=== PATIENT | male | born 1950 | race Caucasian/White ===

== ENCOUNTER → 2020-01-27 | Outpatient (CLI) | payer MEDICARE ==
--- NOTE | 2020-01-29 11:38 | ECHOF ---
Referral Reason:R01.1 heart murmur MEASUREMENTS -------- HEIGHT: 175.3 cm WEIGHT: 86.6 kg BP: 144/80 RVIDd: 3.1 cm (< 3.3) IVSd: 1.3 cm (0.6 - 1.1) LVIDd: 4.4 cm (3.9 - 5.3) LVPWd: 1.1 cm (0.6 - 1.1) IVSs: 1.6 cm LVIDs: 2.7 cm LVPWs: 1.9 cm LA Diam: 3.6 cm (2.7 - 3.8) LAESV Index (A-L): 23.51 ml/m Ao Diam: 3.2 cm (2.0 - 3.7) AV Cusp: 1.8 cm (1.5 - 2.6) MV EXCURSION: 20.180 mm (> 18.000) MV EF SLOPE: 118 mm/s (70 - 150) EPSS: 0.3 cm MV E Vamshi: 0.86 m/s MV DecT: 239 ms MV A Vamshi: 0.96 m/s MV E/A Ratio: 0.90 AV maxP.60 mmHg AV meanP.62 mmHg AR PHT: 442 ms RAP: 5.00 mmHg RVSP: 23.72 mmHg FINDINGS -------- Sinus rhythm. This was a technically good study. The left ventricular size is normal. There is mild concentric left ventricular hypertrophy. Overa ll left ventricular systolic function is normal with, an EF between 60 - 65 %. The right ventricle is normal in size. Normal LA size by volume 22+/-6 ml/m2. The right atrium is normal in size. Interatrial and interventricular septum intact. There is mild aortic valve sclerosis. Trace to mild aortic regurgitation. There is trace to mild mitral regurgitation. Mild tricuspid regurgitation present. Trace/mild (physiologic) pulmonic regurgitation. The aortic root size is normal. Normal inferior vena cava with normal inspiratory collapse consistent with estimated right atrial pre ssure of 5 mmHg. There is no pericardial effusion. CONCLUSIONS -------- 1. Sinus rhythm. 2. This was a technically good study. 3. The left ventricular size is normal. 4. There is mild concentric left ventricular hypertrophy. 5. Overall left ventricular systolic function is normal with, an EF between 60 - 65 %. 6. The right ventricle is normal in size. 7. Normal LA size by volume 22+/-6 ml/m2. 8. The right atrium is normal in size. 9. Interatrial and interventricular septum intact. 10. There is mild aortic valve sclerosis. 11. Trace to mild aortic regurgitation. 12. There is trace to mild mitral regurgitation. 13. Mild tricuspid regurgitation present. 14. Trace/mild (physiologic) pulmonic regurgitation. 15. The aortic root size is normal. 16. Normal inferior vena cava with normal inspiratory collapse consistent with estimated right atrial pressure of 5 mmHg. 17. There is no pericardial effusion. BIRD TRAPPER: TONI Coles
== END | disposition home or self-care (01) ==
LOC: RADECHMAIN 10:40
PROVIDERS: ATTEND Family Medicine
DX: I08.3 Combined rheumatic disorders of mitral, aortic and tricuspid valves (principal); I37.1 Nonrheumatic pulmonary valve insufficiency
CPT/HCPCS: 93306

== ENCOUNTER → 2020-01-29 | Outpatient (CLI) | payer MEDICARE ==
--- NOTE | 2020-01-29 12:49 | US ---
EXAMINATION TYPE: US prostate transrectal DATE OF EXAM: 01/29/2020 COMPARISON: NONE CLINICAL HISTORY: R97.20 Elevated PSA. This examination was performed using the transrectal probe. EXAM MEASUREMENTS: Gland Size: 4.8 X 2.6 X 4.1cm Volume: 26.7 Predicted PSA: 3.21 Actual PSA (if available):16.8 5-14-20 Heterogeneous gland with central calcifications, PSA does not correlate with gland size. IMPRESSION: Heterogenous prostate gland with no specific suspicious sonographic abnormality. Screeni ng MRI of the prostate, urologic consultation and/or biopsy should be considered given the elevated P SA that is discordant with the prostate gland size and predicted PSA. Predicted PSA = volume x 0.12 ng/ml Calculated Volume = 0.5236 x L x W x H
== END | disposition home or self-care (01) ==
LOC: RADUSWWP 08:52
PROVIDERS: ATTEND Family Medicine
DX: N42.89 Other specified disorders of prostate (principal); R97.20 Elevated prostate specific antigen [PSA]
CPT/HCPCS: 76872

== ENCOUNTER 2020-09-30 18:58 | Emergency (ER) | payer MEDICARE ==
[2020-09-30] MEDS ORDERED: ENALAPRILAT 1.25 MG/ML 1 ML VIAL IVP STA (20:22)
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
[2020-09-30 20:41] LABS: Basophils # (A) 0.1 k/uL (0-0.2); Basophils % (A) 1 %; Eosinophils # (A) 0.1 k/uL (0-0.7); Eosinophils % (A) 1 %; HCT 45.2 % (39.0-53.0); HGB 15.4 gm/dL (13.0-17.5); Lymphocytes # (A) 1.7 k/uL (1.0-4.8); Lymphocytes % (A) 21 %; MCH 30.9 pg (25.0-35.0); MCV 90.9 fL (80.0-100.0); Mean Platelet Volume 7.6; Monocytes # (A) 0.5 k/uL (0-1.0); Monocytes % (A) 6 %; Neutrophils # (A) 5.6 k/uL (1.3-7.7); Neutrophils % (A) 69 %; Platelet Count 240 k/uL (150-450); RBC 4.97 m/uL (4.30-5.90); RDW 13.1 % (11.5-15.5); WBC 8.1 k/uL (3.8-10.6)
[2020-09-30 20:49] LABS: Appearance,Urine Clear (Clear); Bacteria,Urine Rare /hpf; Bilirubin,Urine Negative (Negative); Blood,Urine Negative (Negative); Color,Urine Yellow; Glucose,Urine (UA) Negative (Negative); Ketones,Urine Negative (Negative); Leukocyte Esterase,Urine Trace (Negative); Mucus,Urine Rare /hpf; Nitrite,Urine Positive (Negative); Protein,Urine Negative (Negative); RBC,Urine 2 /hpf (0-5); Specific Gravity,Urine 1.014 (1.001-1.035); Urobilinogen,Urine <2.0 mg/dL (<2.0); WBC,Urine 6 /hpf (0-5)
[2020-09-30 20:55] LABS: Albumin 4.2 g/dL (3.5-5.0); Calcium 9.6 mg/dL (8.4-10.2); Magnesium 1.9 mg/dL (1.6-2.3); Potassium 4.5 mmol/L (3.5-5.1); Total Bilirubin 0.8 mg/dL (0.2-1.3); Total Protein 7.9 g/dL (6.3-8.2)
--- NOTE | 2020-09-30 21:07 | XR ---
EXAMINATION TYPE: XR chest 2V DATE OF EXAM: 09/30/2020 COMPARISON: NONE HISTORY: High blood pressure TECHNIQUE: 2 views FINDINGS: There is no heart failure nor confluent pneumonic infiltrate. Costophrenic angles are clear . Thoracic aorta is atheromatous. Bony thorax is intact. IMPRESSION: No active cardiac pulmonary disease.
[2020-09-30] MEDS ORDERED: HYDROmorphone 1 MG/ML 1 ML SYRINGE IVP STA (21:41)
[2020-09-30] MEDS ORDERED: KETOROLAC 15 MG/ML 1 ML VIAL IVP STA (22:21)
[2020-09-30 22:46] VITALS: BP 156/84; PULSE 74; RESP 19; TEMP 98.2
== END 2020-09-30 22:37 | disposition home or self-care (01) ==
LOC: EC 18:58
DX: I10 Essential (primary) hypertension (principal); G62.9 Polyneuropathy, unspecified; M79.672 Pain in left foot; Z79.899 Other long term (current) drug therapy; Z87.891 Personal history of nicotine dependence
CPT/HCPCS: 99284; 96374; 96375 ×2; 36415; 93005; 80053; 82550; 83735; 85025; 81001; 71046; J1170; J1885

== ENCOUNTER → 2024-08-27 | Outpatient (CLI) | payer MEDICARE ==
--- NOTE | 2024-08-27 14:39 | CT ---
EXAMINATION TYPE: CT sinus wo con CT DLP: 501.9 mGycm, Automated exposure control for dose reduction was used. DATE OF EXAM: 08/27/2024 1:47 PM COMPARISON: None. CLINICAL INDICATION:Male, 73 years old with history of J32.0 SINUSITIS; PHH, sinusitis CONTRAST: None. TECHNIQUE: Multiple thin axial images were obtained through the paranasal sinuses without the use of IV contrast. Additional coronal and sagittal reformatted images were submitted for evaluation. FINDINGS: Frontal sinuses: Normally developed and aerated. Frontal Recess: Clear Maxillary Sinuses: Normally developed and aerated the right maxillary sinus is well aerated. Minimal mucosal thickening of the left maxillary sinus. The inferior portions of the bilateral maxillary sinu ses are not included in the [id number]. Maxillary Infundibula([facility]): Clear, No Rocio cells identified. Ethmoid sinuses: Normally developed and aerated. Ethmoidal notch: Protected and abutting the lateral lamina. Sphenoid sinuses: Normally developed and aerated. There is sellar sphenoid sinus pneumatization witho ut evidence of dehiscence. No dehiscence of carotid canal. No evidence of optic nerve dehiscence wit hin the sphenoid sinus. No evidence of Onodi cells. Sphenoethmoidal recesses: Clear. Nasal septum: Within normal limits.. Nasal Turbinates: Within normal limits. Mastoid air cells & middle ears: The right mastoid air cells are clear. Partial opacification of the left mastoid air cells. The middle ears are grossly unremarkable. Modified Soft tissues & Brain: Partially seen without gross abnormality. Globes are intact. Other: Cribriform plate demonstrates symmetric Keros classification type 2 cribriform plate. No evidence of bony dehiscence of skull base. Lamina papyracea is intact without evidence of remote orbital fracture or orbital prolapse into the e thmoid sinus. Pneumatization of the steve yanira. IMPRESSION: 1. Minimal mucosal thickening of the left maxillary sinus. The remaining visualized paranasal sinuses are clear. 2. The ostiomeatal units, frontonasal and sphenoethmoidal recesses are clear. [facility], , 08/27/2024 2:36 PM
== END | disposition home or self-care (01) ==
LOC: RADCTMAIN 13:20
PROVIDERS: ATTEND Otolaryngology
DX: J32.0 Chronic maxillary sinusitis (principal); J34.89 Other specified disorders of nose and nasal sinuses
CPT/HCPCS: 70486

== ENCOUNTER → 2024-08-27 | Outpatient (CLI) | payer MEDICARE ==
[2024-08-28 01:30] LABS: Birch IgE <0.10 kU/L; Maple (Box Elder) IgE <0.10 kU/L; Oak IgE <0.10 kU/L; Walnut IgE (Food) <0.10 kU/L
[2024-08-28 11:27] LABS: Com. Pigweed IgE <0.10 kU/L (<0.10); Com. Pigweed IgE Class CLASS 0; Cottonwood IgE <0.10 kU/L (<0.10); Sycamore(Mpl.Lf) IgE <0.10 kU/L (<0.10); Sycamore(Mpl.Lf) IgE Class CLASS 0; White Ash IgE Class CLASS 0
== END | disposition home or self-care (01) ==
LOC: LABWHC1 13:58
PROVIDERS: ATTEND Otolaryngology
DX: J30.89 Other allergic rhinitis (principal)
CPT/HCPCS: 36415; 86003

== ENCOUNTER → 2024-11-14 | Outpatient (CLI) | payer MEDICARE ==
--- NOTE | 2024-11-14 15:19 | US ---
EXAMINATION TYPE: US kidneys/renal and bladder DATE OF EXAM: 11/14/2024 COMPARISON: NONE CLINICAL INDICATION: Male, 74 years old with history of R10.30 LOWER ABDOMINAL PAIN, UNSPECIFIED; Uri nary retention. R/O kidney stones per patient. Bladder and back pain per patient that started this m orning. TECHNIQUE: Grayscale imaging of the bilateral kidneys and urinary bladder: FINDINGS: EXAM MEASUREMENTS: Right Kidney: 10.8 x 6.1 x 5.5 cm Left Kidney: 11.5 x 5.9 x 5.5 cm Post Void Residual Volume: 90.45 mL Right Kidney: *Hydronephrosis seen. *Complex area seen upper pole: 2.4 x 2.0 x 1.8 cm. *Hypoechoic area seen upper pole: 3.0 x 3.3 x 2.7 cm. Left Kidney: *Hydronephrosis seen Bladder: Bladder wall appears thick: 7 mm. Question thickened, irregular, jagged posterior bladder wall versus echogenic material within: 6.8 x 6.6 x 1.7 cm. Bilateral Jets seen: Yes Normal Post Void Residual: No IMPRESSION: 1. Mild right hydronephrosis. 2. Right renal cortical cysts. 3. Trabeculated bladder roach with wall thickening correlate with urinalysis. Correlate for bladder outlet obstruction versus mass. Further workup recommended. [facility], , 11/14/2024 3:16 PM
== END | disposition home or self-care (01) ==
LOC: RADUSWWP 14:14
PROVIDERS: ATTEND Family Medicine
DX: N28.1 Cyst of kidney, acquired (principal); N32.89 Other specified disorders of bladder; N13.30 Unspecified hydronephrosis
CPT/HCPCS: 76770